=== PATIENT | female | born 1965 | race American Indian/Alaskan Native ===

== ENCOUNTER 2020-10-26 21:49 | Emergency (ER) | payer SELFPAY | END 2020-10-27 02:30 | disposition left against medical advice (07) | LOC: ED 21:49 | DX: Z04.1 Encounter for examination and observation following transport accident (principal); Z53.21 Procedure and treatment not carried out due to patient leaving prior to being seen by health care provider; V89.2XXA Person injured in unspecified motor-vehicle accident, traffic, initial encounter; Y93.89 Activity, other specified; Y92.488 Other paved roadways as the place of occurrence of the external cause; Y99.8 Other external cause status ==

== ENCOUNTER 2020-12-05 22:57 | Emergency (ER) | payer OTHER ==
[2020-12-05] MEDS ORDERED: ASPIRIN 81 MG TAB CHEW PO ONE (23:29)
[2020-12-05] MEDS ORDERED: ASPIRIN 325 MG TAB PO ONE (23:34)
[2020-12-05] MEDS ORDERED: FAMOTIDINE 20 MG TAB PO ONE (23:35)
--- NOTE | 2020-12-05 23:37 | Event Note ---
ED Screening Note Date of service: 12/05/20 Time: 23:35 ED Screening Note: Patient is a 55-year-old -[place] female with a history of hypertension who presents to the ED with complaint of acute onset persistent substernal chest pain that she describes as pressure-like intermittently for the last 4 days, worse in the last 6 hours. Patient states that the symptoms have worsened especially 2 hours prior to arrival in the ED. Patient also states that the pain is persistent, intermittent and radiates to the mid posterior thoracic area. Patient denies dizziness, syncope, palpitations, fever, chills, cough, sore throat, nausea and vomiting, diaphoresis, neck pain, change in vision, h eadache or abdominal pain, numbness and tingling or weakness of upper and lower extremities bilaterally. This initial assessment/diagnostic orders/clinical plan/treatment(s) is/are subject to change based on patients health status, clinical progression and re- assessment by fellow clinical providers in the ED. Further treatment and workup at subsequent clinical providers discretion. Patient/guardian urged not to elope from the ED as their condition may be serious if not clinically assessed and managed. Initial orders include: CBC, CMP, troponin, chest x-ray
[2020-12-05 23:59] LABS: Basophils # (Auto) 0.1 K/mm3 (0.0-0.1); Basophils % (Auto) 0.9 % (0.0-1.8); Eosinophils # (Auto) 0.2 K/mm3 (0.0-0.4); Eosinophils % (Auto) 3.1 % (0.0-4.3); Hematocrit 37.8 % (30.3-42.9); Hemoglobin 12.7 gm/dl (10.1-14.3); Lymphocytes # (Auto) 1.4 K/mm3 (1.2-5.4); Lymphocytes % (Auto) 22.6 % (13.4-35.0); Mean Corpuscular HGB Conc 34 % (30-34); Mean Corpuscular Volume 91 fl (79-97); Monocytes # (Auto) 0.4 K/mm3 (0.0-0.8); Monocytes % (Auto) 7.2 % (0.0-7.3); Platelet Count 243 K/mm3 (140-440); Red Blood Count 4.14 M/mm3 (3.65-5.03); Red Cell Distribution Width 15.3 % (13.2-15.2)
--- NOTE | 2020-12-06 00:01 | XRay Report ---
CHEST 2 VIEWS INDICATION / CLINICAL INFORMATION: Chest Pain. FINDINGS: SUPPORT DEVICES: None. HEART / MEDIASTINUM: No significant abnormality. LUNGS / PLEURA: No significant pulmonary or pleural abnormality. No pneumothorax. ADDITIONAL FINDINGS: No significant additional findings. IMPRESSION: 1. No acute findings. Signer Name: Iron James MD Signed: 12/05/2020 11:57 PM Workstation Name: [id number]
[2020-12-06 00:23] LABS: Alanine Aminotransferase 17 units/L (7-56); Albumin 4.1 g/dL (3.9-5); BUN/Creatinine Ratio 29; Blood Urea Nitrogen 26 mg/dL (7-17); Calcium 9.2 mg/dL (8.4-10.2); Hemolysis Index 19
--- NOTE | 2020-12-06 02:00 | Emergency Department Report ---
ED Chest Pain HPI - General Chief Complaint: Chest Pain Stated Complaint: CHEST PAIN Time Seen by Provider: 12/06/20 01:48 Source: patient Mode of arrival: Ambulatory Limitations: No Limitations - History of Present Illness Initial Comments: Patient is 55 years old female with history of hypertension. Patient presented to the ER complaining of substernal chest pain, on and off for the last 4 days. Patient described her pain as heaviness sometimes and aching sometimes. She reported that pain has no relieving or aggravating factors. She denied any shortness of breath, cough or fever. No history of smoking. MD Complaint: chest pain -: days(s) (4) Onset: during rest Pain Location: substernal Pain Radiation: none Severity: moderate Quality: heaviness Consistency: intermittent Improves With: nothing Worsens With: nothing - Related Data Allergies Allergy/AdvReac Type Severity Reaction Status Date / Time KONRAD Inhibitors AdvReac Anaphylaxis Verified 12/05/20 23:29 Heart Score - HEART Score History: Slightly suspicious EKG: Non-specific Age: 45-65 Risk factors: 1-2 risk factors Troponin: < normal limit HEART Score: 3 - EKG Read Time Time EKG Completed: 23:23 EKG Read Time: 23:23 - Critical Actions Critical Actions: 0-3 pts:0.9-1.7%risk of adverse cardiac event.Candidate for discharge ED Review of Systems ROS: Stated complaint: CHEST PAIN Other details as noted in HPI Comment: All other systems reviewed and negative Respiratory: denies: cough, shortness of breath Cardiovascular: chest pain Gastrointestinal: denies: abdominal pain, nausea, vomiting Musculoskeletal: denies: back pain Neurological: denies: headache, weakness, numbness, paresthesias ED Past Medical Hx - Past Medical History Previous Medical History?: No Hx Hypertension: Yes - Surgical History Past Surgical History?: No - Social History Smoking Status: Unknown if ever smoked Substance Use Type: None ED Physical Exam - General Limitations: No Limitations General appearance: alert, in no apparent distress - Head Head exam: Present: atraumatic, normocephalic, normal inspection - Eye Eye exam: Present: normal appearance, PERRL - ENT ENT exam: Present: normal exam, normal orophraynx, mucous membranes moist - Neck Neck exam: Present: normal inspection, full ROM. Absent: tenderness, meningismus - Respiratory Respiratory exam: Present: normal lung sounds bilaterally, chest wall tenderness - Cardiovascular Cardiovascular Exam: Present: regular rate, normal rhythm, normal heart sounds - GI/Abdominal GI/Abdominal exam: Present: soft, normal bowel sounds. Absent: distended, tenderness, guarding, rebound, rigid, organomegaly, mass, bruit, pulsatile mass, hernia - Extremities Exam Extremities exam: Present: normal inspection, full ROM, normal capillary refill. Absent: tenderness, pedal edema, calf tenderness - Back Exam Back exam: Present: normal inspection, full ROM. Absent: CVA tenderness (R), CVA tenderness (L) - Neurological Exam Neurological exam: Present: alert, oriented X3, CN II-XII intact - Psychiatric Psychiatric exam: Present: normal mood - Skin Skin exam: Present: warm, intact, normal color ED Course Vital Signs 12/05/20 12/06/20 12/06/20 23:13 02:00 02:16 Temperature 98.0 F Pulse Rate 83 62 61 Respiratory 18 18 17 Rate Blood Pressure 139/87 143/81 143/81 O2 Sat by Pulse 98 100 99 Oximetry 12/06/20 12/06/20 12/06/20 02:30 02:46 03:00 Temperature Pulse Rate 59 L 62 58 L Respiratory 15 16 14 Rate Blood Pressure 130/73 134/73 129/74 O2 Sat by Pulse 100 98 99 Oximetry 12/06/20 12/06/20 03:16 03:30 Temperature Pulse Rate 63 61 Respiratory 14 15 Rate Blood Pressure 137/75 127/83 O2 Sat by Pulse 98 97 Oximetry ED Medical Decision Making - Lab Data Result diagrams: 12/05/20 23:37 12/05/20 23:37 - EKG Data -: EKG Interpreted by Wy EKG shows normal: sinus rhythm Rate: normal - EKG Data Interpretation: no acute changes - Radiology Data Radiology results: report reviewed - Medical Decision Making Patient is 55 years old female with history of hypertension. Patient presented to the ER complaining of substernal chest pain, on and off for the last 4 days. Patient described her pain as heaviness sometimes and aching sometimes. She reported that pain has no relieving or aggravating factors. She denied any shortness of breath, cough or fever. No history of smoking. EKG is unremarkable. Chest x-ray is negative for acute finding. Labs reviewed and is unremarkable including negative troponin x2. Chest pain is reproducible. Patient strongly advised to follow-up with her primary care physician for outpatient cardiac work-up and to return to the ER if she develop any new symptoms. Critical care attestation.: If time is entered above; I have spent that time in minutes in the direct care of this critically ill patient, excluding procedure time. ED Disposition Clinical Impression: Acute chest pain, Costochondritis, acute Disposition: DC-01 TO HOME OR SELFCARE Is pt being admited?: No Condition: Stable Instructions: Chest Pain (ED), Costochondritis, [id number], Nonspecific Chest Pain, Adult Referrals: PRIMARY CARE,MD [Primary Care Provider] - 3-5 Days
[2020-12-06] MEDS ORDERED: ASPIRIN 325 MG TAB ONE (02:25)
[2020-12-06] MEDS ORDERED: FAMOTIDINE 20 MG TAB ONE (02:25)
[2020-12-06] MEDS ORDERED: FAMOTIDINE 20 MG TAB PO ONE (03:20)
[2020-12-06] MEDS ORDERED: ASPIRIN 325 MG TAB PO ONE (03:30)
[2020-12-06 03:38] VITALS: BP 127/83
--- NOTE | 2020-12-06 11:18 | Electrocardiograph Report ---
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
== END 2020-12-06 04:49 | disposition home or self-care (01) ==
LOC: ED 22:57
DX: M94.0 Chondrocostal junction syndrome [Tietze] (principal); R07.9 Chest pain, unspecified; I10 Essential (primary) hypertension; Z88.8 Allergy status to other drugs, medicaments and biological substances
CPT/HCPCS: 36415; 71046; 80053; 83880; 84484; 85025; 93005